=== PATIENT | male | born 1990 | race Caucasian/White ===

== ENCOUNTER 2025-07-19 20:43 | Emergency (ER) | payer BC, SELFPAY ==
[2025-07-19 20:49] VITALS: BP 155/112
[2025-07-19 23:53] VITALS: BMI 26.4
--- NOTE | 2025-07-20 01:05 | ED.GENMED ---
History of Present Illness
General
Chief Complaint: Headache
Source: patient
Exam Limitations: none
Time Seen by Provider: 07/20/25 00:53
Nursing documentation reviewed up to this point in time: agreed with
History of Present Illness
History of Present Illness:
Note:
CHIEF COMPLAINT(S)
Headache and dizziness following a visit to a chiropractor.
HISTORY OF PRESENT ILLNESS
The patient is a 34-year-old individual with past medical history of GERD, anxiety, depression who presented with a headache and dizziness that began after a visit to a chiropractor approximately two weeks ago. At that time, the chiropractor
performed adjustments, including manipulations to the neck, which the patient described as feeling aggressive. He reports that at the first adjustment, he felt that his neck was turned beyond its normal range and he felt sharp pain and noticed some
blurry vision at the time that since resolved. The headache is described as dull and intermittent over the past two weeks, ranging in severity, and worsening particularly yesterday, accompanied by a dizzy spell and near-syncope. Currently, he
notes that the headache is dull and is not bothering him much at this time. The headache is in the forehead and behind the right eye. He denies current dizziness, palpitations, weakness one-sided body versus other, paresthesias, facial droop. The
patient expressed concern about a potential serious underlying condition such as intracranial bleeding. T the patient has not had any nausea or vomiting. No fever. There are no current focal neurological deficits such as weakness or facial droop.
The patient is concerned about intracranial injury.
SOCIAL DETERMINANTS AFFECTING HEALTH
The patient expressed concern about the aggressive chiropractic adjustment and is seeking reassurance regarding potential serious health concerns.
PHYSICAL EXAM
General: Patient is well appearing and in no acute distress; non-toxic
Skin: Warm and dry, no rashes or lesions
Head: Normocephalic, atraumatic
Eyes: Sclera non-icteric. EOMs intact.
Cardiac: Regular rate, and rhythm, no murmur
Peripheral Vascular: No lower extremity swelling or edema
Pulm: Normal respiratory effort, no wheezes, rales, rhonchi
Abdomen: No abdominal tenderness
Musculoskeletal: No midline cervical spinal tenderness. Full range of motion of the cervical spine.
Neuro: CN II-XII intact, no focal neurologic deficits. Normal gait. Normal finger-nose, heel addison. 5 out of 5 strength in bilateral upper and lower extremities.
Psychiatric: Appropriate mood and affect.
PLAN
- Obtain a computed tomography (CT) scan of the head and neck with intravenous contrast to rule out any vascular injury or bleeding.
DIFFERENTIAL DIAGNOSIS
The Differential Diagnosis includes, in no particular order and is not limited to:
- Cervicogenic headache
- Tension-type headache
- Migraine
- Vestibular dysfunction
- Cervical artery dissection
- Intracranial hemorrhage
- Postural orthostatic tachycardia syndrome (POTS)
- Anxiety-induced dizziness
- Benign paroxysmal positional vertigo (BPPV)
- Muscle strain/spasm
SUMMARY OF ENCOUNTER
The patient presented to the emergency department with a two-week history of headache and recent dizziness after a chiropractic neck adjustment. The patient is concerned about potential intracranial bleeding. A thorough neurologic examination
revealed no focal deficits. A CT scan was ordered to rule out any acute intracranial pathology.
CTA of the head and neck shows no acute intracranial hemorrhage, no large territorial ischemia, the cervical carotid and vertebral arteries are patent and neck without high-grade stenosis no evidence of dissection. Suspect tension headache versus
cluster headache. Could also be initial presentation of migraine headache. Discussed follow-up with PCP and neurology. Patient wishes to return back to chiropractor but I advised against this. Discussed tricked return precautions. Patient
stable for discharge.
INDEPENDENT REVIEW OF LABS AND INTERPRETATION OF TESTS
- My independent interpretation of the planned CT scan (not yet performed) will assess for any intracranial bleeding or vascular injuries that may have resulted from the recent chiropractic adjustment.
MEDICAL DECISION MAKING
- Number and Complexity of Problems Addressed: Chronic conditions affecting care include cervicogenic headache and dizziness following chiropractic manipulation.
- Data:
- Category 1: Tests and documents: A CT scan with contrast is planned to evaluate for intracranial pathology.
- Risk: Consideration of Admission/Observation: Escalation of care including admission/observation was considered given the complexity and risk of the patients presenting complaint, exam findings, and/or their underlying comorbidities. However,
ultimately I feel the patient is safe for outpatient management with close follow up. Reasoning: Work-up reassuring, does not reveal any acute life/organ threatening processes, patients symptoms well controlled upon reevaluation, reexamination is
reassuring, vitals are stable, patient agreeable with discharge, reliable for follow-up.
DIAGNOSIS
Tension headache
Phy Exam
Physical Exam
Physical Exam:
see hpi
Course
Orders/Labs/Results
Orders:
Orders
07/20/25 01:06
CT Head & Neck Angio W/wo IV Urgent
Comment:
Reason For Exam: headache, neck pain, dizziness after chiro
07/20/25 01:17
Complete Blood Count/With Diff Urgent
Comprehensive Metabolic Panel Urgent
Abnormal Lab Results
07/20/25
01:17
MCHC 37.1 H g/dL
(33.0-37.0)
ALT 59 H U/L
(0-50)
07/20/25 01:17
07/20/25 01:17
Vital Signs
Initial and Last Documented VS:
Initial Vital Signs
Temp Pulse Resp BP Pulse Ox
97.9 F 88 18 155/112 100
07/19/25 20:49 07/19/25 20:49 07/19/25 20:49 07/19/25 20:49 07/19/25 20:49
Last Documented Vital Signs
Temp Pulse Resp BP Pulse Ox
97.9 F 88 18 155/112 100
07/19/25 20:49 07/19/25 20:49 07/19/25 20:49 07/19/25 20:49 07/20/25 01:06
*Pulse Oximetry
SaO2: 100
Oxygen Mode of Delivery: Room air
Patient hypoxic: no
*Critical Care Note
Total Time (30-74mins, 75-104mins- exclusive of procedures): Not Applicable
ED Attending Note
-
Portions of this chart may have been created with voice recognition software.� Occasional wrong word or��sound alike� substitutions may have occurred due to the inherent limitations of voice recognition software.
Discharge Plan
Departure
Patient Disposition: Home (Routine Discharge)
Date of Disposition: 07/20/25
Time of Disposition: 03:18
Patient with high blood pressure during this ER visit?: Yes
Condition: Good
Discharge Problem:
Tension headache
Instructions: Headache, Adult (DC), BLOOD PRESSURE
Referrals:
Kobe Coates MD [Family Provider, Family Practice]
Activity Restrictions/Additional Instructions:
You can continue to take ibuprofen as needed for symptoms. Please avoid further chiropractic adjustments. Please call your PCP tomorrow to schedule follow-up for reassessment and reevaluation. As discussed, you received a CT angiography of the
head and neck today which showed no evidence of intracranial bleeding, or other acute problems. There is no evidence of dissection of the vessels of the neck or large artery occlusion or stenosis.
PLEASE RETURN TO ER SHOULD YOU DEVELOP ACUTE WORSENING OF YOUR SYMPTOMS, INTRACTABLE NAUSEA OR VOMITING, VISUAL LOSS OR BLURRY VISION, LOSS OF SENSATION IN UPPER EXTREMITIES, OR ANY OTHER SIGNS OR SYMPTOMS WORRISOME TO YOU.
Interventions
Interventions:
*Risk Screen - Suicide Last Done: 07/19/25 20:49
*General Assessment Last Done: 07/19/25 20:49
*Neglect/Abuse Screening Last Done: 07/19/25 23:53
*ED COVID-19 Vaccine History Last Done: 07/19/25 23:53
*ED Influenza Vaccine History Last Done: 07/19/25 23:53
[facility] Risk Assessment Tool Last Done: 07/20/25 00:12
*Nursing Disposition Last Done: 07/20/25 03:27
ED- Neurological Assessment Last Done: 07/20/25 00:12
Discharge Date and Time
Discharge Date/Time: 07/20/25 03:30
Print Language: MACANESE
[2025-07-20 01:30] LABS: Hematocrit 45.3 % (39.0-52.0); Hemoglobin 16.8 g/dL (13.0-18.0); Mean Corp Hgb Conc. 37.1 g/dL (33.0-37.0); Mean Corpuscular Volume 81.5 fL (80.0-94.0); Nucleated Red Blood Cells % 0 % (-); Platelet Count 197 10^3/uL (130-400); Red Cell Dist. Width 11.7 % (11.5-14.5)
[2025-07-20 01:58] LABS: ALT (SGPT) 59 U/L (0-50); AST (SGOT) 33 U/L (17-59); Albumin 4.7 g/dl (3.5-5.0); Alkaline Phosphatase 77 U/L (38-126); Blood Urea Nitrogen 12 mg/dl (9-20); Calcium 9.5 mg/dl (8.4-10.2); Carbon Dioxide 29 mmol/L (22-30); Chloride 105 mmol/L (98-107); Estimated Creatinine Clearance > 125 ml/min; Glucose 84 mg/dl (70-99); Potassium 3.8 mmol/L (3.5-5.1); Sodium 138 mmol/L (135-145); Total Protein 7.4 g/dl (6.3-8.2); eGFR > 60.00
== END 2025-07-20 03:30 | disposition home or self-care (01) ==
LOC: EMR 20:43
PROVIDERS: Physician Assistant; EMERGENCY PHYSICIAN Emergency Medicine; FAMILY PHYSICIAN Family Medicine
DX: G44.209 Tension-type headache, unspecified, not intractable (principal); R03.0 Elevated blood-pressure reading, without diagnosis of hypertension; K21.9 Gastro-esophageal reflux disease without esophagitis; F41.9 Anxiety disorder, unspecified; F32.A Depression, unspecified
CPT/HCPCS: 99284; 70496; 70498; 80053; 85025; Q9967